=== PATIENT | female | born 1965 | race African-American/Black ===

== ENCOUNTER 2019-05-03 13:37 | Emergency (ER) | payer MEDICARE, MEDICAID ==
[~2019-05-03] VITALS: Ht 167.6 cm; Wt 133.4 kg
[2019-05-03] MEDS ORDERED: IV NORMAL SALINE 1000 ML BAG IV ONE (14:30)
[2019-05-03] MEDS ORDERED: diphenhydrAMINE 50 MG/1 ML VIAL IV ONE (14:30)
[2019-05-03] MEDS ORDERED: METOCLOPRAMIDE HCL 10 MG/2 ML VIAL IV ONE (14:30)
[2019-05-03] MEDS ORDERED: diphenhydrAMINE 50 MG/1 ML VIAL ONE ×2 (14:35→15:16)
[2019-05-03] MEDS ORDERED: METOCLOPRAMIDE HCL 10 MG/2 ML VIAL ONE (14:35)
[2019-05-03 14:41] LABS: BASOPHILS # (AUTO) 0.1 K/uL (0.0-8.0); BASOPHILS % (AUTO) 0.9 % (0.0-2.0); EOSINOPHILS # (AUTO) 0.1 K/uL (0.0-0.7); EOSINOPHILS % (AUTO) 1.5 % (0.0-7.0); HEMATOCRIT 38.9 % (31.2-41.9); HEMOGLOBIN 12.8 g/dL (10.9-14.3); LYMPHOCYTES # (AUTO) 3.7 K/uL (20.0-40.0); LYMPHOCYTES % (AUTO) 57.2 % (20.5-51.5); MEAN CORPUSCULAR HEMOGLOBIN 26.3 uug (24.7-32.8); MEAN CORPUSCULAR HGB CONC 33 g/dL (32.3-35.6); MONOCYTES # (AUTO) 0.5 K/uL (2.0-10.0); MONOCYTES % (AUTO) 8.4 % (0.0-11.0); PLATELET COUNT (AUTO) 293 K/uL (179-408); RED BLOOD CELL COUNT(AUTO) 4.87 MIL/uL (3.63-4.92); WHITE BLOOD COUNT (AUTO) 6.4 K/uL (3.8-11.8)
[2019-05-03 14:46] LABS: CREATININE 0.9 mg/dL (0.6-1.3)
[2019-05-03 14:52] LABS: BILIRUBIN,DIRECT 0.1 mg/dL (0.0-0.2); BILIRUBIN,TOTAL 0.6 mg/dL (0.2-1.0); TOTAL PROTEIN, SERUM 8.9 g/dL (6.4-8.2)
[2019-05-03] MEDS ORDERED: MORPHINE SULFATE 4 MG/1 ML DISP.SYRIN IV ONE (15:15)
[2019-05-03] MEDS ORDERED: MORPHINE SULFATE 4 MG/1 ML DISP.SYRIN ONE (15:16)
--- NOTE | 2019-05-03 17:05 | NUR ---
Patient discharged to home in stable conditon. Written and verbal after care instructions given. Patient verbalizes understanding of instructions.PT WALKS IN STEADY GAIT. PT SAYS FEELS BETTER. PT NOT DRIVING
[2019-05-03 17:09] VITALS: BP 106/77
== END 2019-05-03 17:09 | disposition home or self-care (01) ==
LOC: ER 13:37
DX: B34.9 Viral infection, unspecified (principal); R51 Headache; R42 Dizziness and giddiness; Z79.899 Other long term (current) drug therapy
CPT/HCPCS: 36415; 70450; 80048; 80076; 84484; 85025; 93005; 96361; 96374; 96375; 99285; J1200; J2270; J2765; 70030-TC; A4663; J7030